=== PATIENT | male | born 1945 | race Caucasian/White ===

== ENCOUNTER → 2016-11-28 | Outpatient (CLI) | payer MEDICARE, OTHER ==
[~2016-11-28] MED LIST: ACETAMINOPHEN PR; ALEVE220 M1 PO; ALLOPURINOL300 MG PO; ATORVASTATIN CA20 MG PO; B-12500 MCG PO; COLACE PO; DETROL LA PO; FERROUS SULFATE PO; FISH OIL300 MG PO; GLIPIZIDE10 MG PO; GLUCOTROL PO; INDOMETHACIN25 MG PO; INSULIN; IRON PO; IRON SUPPLEMENT1 TAB PO; IRON1 TA1 PO; IRON1 TAB; IRON325 ( 652 PO; KEFLEX500 M2 PO; KETOPROFEN50 MG PO; KRILL OIL 1,001 EAC1 PO; LANTUS100 U/ML SUBQ; LIPITOR20 MG PO; NEURONTIN300 MG PO; NEXIUM PO; NORCO 7.5-3251 EACH PO; STOOL SOFTENER100 M1 PO; TYLENOL325 M1 PO; VENTOLIN INH; VIT B-12 PO; VITAMIN B12; VITAMIN B12-FO1 EACH PO; ZOFRAN8 MG PO; ZOLOFT50 MG PO
--- NOTE | ~2016-11-28 | EKG ---
PATIENT: CAROLE COSTELLO UNIT #: [id number] Ventricular Rate: 50 BPM Atrial Rate: 34 BPM QRS Duration: 166 ms Q-T Interval: 490 ms QTC Calculation(Bezet): 446 ms Calculated R [place]ake[place]: -77 degrees Calculated T Leake[place]: 68 degrees Diagnosis Line: Electronic ventricular pacemaker Diagnosis Line: Abnormal ECG Diagnosis Line: Diagnosis Line: Diagnosis Line: Diagnosis Line: Diagnosis Line: Confirmed by GERARDO LOUISE MD ([id number]) on 12/02/2016 Diagnosis Line: 7:15:44 PM INTERPRETING MD: ASPEN PABLO
[2016-11-28 12:17] LABS: HEMATOCRIT 37.5 % (38.0-50.0); HEMOGLOBIN 11.8 gm/dL (13.0-16.0); MEAN CELL VOLUME 67.7 FL (83-96); MEAN CORPUSCULAR HEMOGLOBIN 21.2 PG (28-34); MEAN CORPUSCULAR HGB CONC 31.4 g/dL (30-36); MEAN PLATELET VOLUME 8.6 FL (6.5-11.5); RED BLOOD COUNT 5.55 X10e (3.90-5.60)
[2016-11-28 12:30] LABS: PARTIAL THROMBOPLASTIN TIME 27.5 SECONDS (23.5-31.3); PROTHROMBIN TIME (PATIENT) 10.9 SECONDS (10.0-11.7)
[2016-11-28 12:53] LABS: CALCIUM SERUM 9.1 mg/dL (8.4-10.2); GLOM FILT RATE Estimated 76.5 mL/min (>60); POTASSIUM 4.4 mmol/L (3.5-5.1)
== END | disposition home or self-care (01) ==
LOC: CAMB 11:29
PROVIDERS: Urology
DX: Z01.818 Encounter for other preprocedural examination (principal); C67.9 Malignant neoplasm of bladder, unspecified; C68.0 Malignant neoplasm of urethra; D09.0 Carcinoma in situ of bladder
CPT/HCPCS: 36415; 80048; 85027; 85610; 85730; 86850; 86900; 86901; 93005